=== PATIENT | female | born 1965 | race Caucasian/White ===

== ENCOUNTER 2021-06-11 20:01 | Emergency (ER) | payer OTHER ==
[~2021-06-11] VITALS: Ht 162.6 cm; Wt 50.8 kg
--- NOTE | 2021-06-11 20:44 | NUR ---
AFTER SEEING PROVIDER IN TRIAGE PT. STATES THERE ARE TOO MANY PEOPLE WAITING AND PT. DECIDED TO LEAVE. REQUEST FOR D/C PAPER SIGNED.
== END 2021-06-11 20:45 | disposition left against medical advice (07) ==
LOC: ED 20:09
DX: M79.671 Pain in right foot (principal); M79.672 Pain in left foot
CPT/HCPCS: 99281

== ENCOUNTER 2021-06-12 12:16 | Emergency (ER) | payer OTHER ==
[~2021-06-12] VITALS: Ht 157.5 cm; Wt 48.9 kg
[2021-06-12 13:32] VITALS: BP 178/90
--- NOTE | 2021-06-12 13:49 | NUR ---
JABARI SANTANA AT BEDSIDE.
--- NOTE | 2021-06-12 14:50 | NUR ---
Patient given discharge instructions and they have confirmed that they understand the instructions. Patient ambulatory with steady gait.
== END 2021-06-12 14:53 | disposition home or self-care (01) ==
LOC: ED 14:18
DX: B35.3 Tinea pedis (principal); F17.200 Nicotine dependence, unspecified, uncomplicated
CPT/HCPCS: 99282